=== PATIENT | female | born 1945 | race Caucasian/White ===

== ENCOUNTER 2023-09-03 16:32 | Inpatient (IN) | payer MEDICARE, OTHER ==
[~2023-09-03] VITALS: Ht 160 cm; Wt 83.9 kg
[2023-09-03] MEDS ORDERED: FLUO15OI TP (17:10)
[2023-09-03] MEDS ORDERED: DILT-32 PO (17:10)
[2023-09-03] MEDS ORDERED: LEVO25TA9 PO (17:10)
[2023-09-03] MEDS ORDERED: ROSU20TA2 PO (17:10)
[2023-09-03] MEDS ORDERED: POTA10CA43 PO (17:10)
[2023-09-03] MEDS ORDERED: LURA20TA PO (17:10)
[2023-09-03] MEDS ORDERED: MELA10CA PO (17:10)
[2023-09-03] MEDS ORDERED: CALC-494 PO (17:10)
[2023-09-03] MEDS ORDERED: CYAN100085 PO (17:10)
[2023-09-03] MEDS ORDERED: ALEN70TA3 PO (17:10)
[2023-09-03] MEDS ORDERED: GABA600T12 PO (17:10)
[2023-09-03] MEDS ORDERED: FERR-68 PO (17:10)
[2023-09-03] MEDS ORDERED: DOCU-141 PO (17:10)
[2023-09-03] MEDS ORDERED: TRAZ-257 PO (17:10)
[2023-09-03] MEDS ORDERED: FURO80TA87 PO (17:10)
[2023-09-03] MEDS ORDERED: CHOL10005 PO (17:10)
[2023-09-03] MEDS ORDERED: SPIR25TA PO (17:10)
[2023-09-03 18:46] VITALS: BP 107/65; TEMP 97.8; O2SAT 98
[2023-09-03 19:58] VITALS: BP 106/55; TEMP 97.9; O2SAT 96
[2023-09-03] MEDS ORDERED: ACETAMINOPHEN 325 MG TABLET PO PRN (20:15)
[2023-09-03] MEDS ORDERED: MAGNESIUM HYDROXIDE 30 ML LIQUID UDC PO PRN (20:15)
[2023-09-03] MEDS ORDERED: MAG HYDROX/AL HYDROX/SIMETH 30 ML LIQUID UDC PO PRN (20:15)
[2023-09-03] MEDS: ZOLPIDEM 5 MG TABLET PO PRN (20:40)
[2023-09-03] MEDS ORDERED: FUROSEMIDE 40 MG TABLET PO SCH (21:45)
[2023-09-03] MEDS ORDERED: FLUOCINONIDE 0.05% OINT 15 GM TUBE TP PRN (21:45)
[2023-09-03] MEDS: BLOOD SUGAR DIAGNOSTIC 1 EACH STRIP VI ONE (22:00)
[2023-09-04] MEDS: LORAZEPAM 1 MG TABLET PO PRN (01:17)
[2023-09-04] MEDS ORDERED: FUROSEMIDE 40 MG TABLET PO SCH (05:15)
[2023-09-04] MEDS ORDERED: FLUOCINONIDE 0.05% OINT 15 GM TUBE TP PRN (05:30)
[2023-09-04] MEDS: LEVOTHYROXINE SODIUM 25 MCG TABLET PO SCH (06:28)
[2023-09-04 06:36] LABS: BASOPHILS # (AUTO) 0.1 K/UL (0.0-0.2); BASOPHILS % (AUTO) 1.3 % (0.0-2.0); EOSINOPHILS # (AUTO) 0.3 K/uL (0.0-0.7); EOSINOPHILS % (AUTO) 3.3 % (0.0-7.0); HEMATOCRIT 44.4 % (31.2-41.9); HEMOGLOBIN 15.2 g/dL (10.9-14.3); LYMPHOCYTES # (AUTO) 1.9 K/uL (0.8-4.8); MEAN CORPUSCULAR HEMOGLOBIN 30.3 uug (24.7-32.8); MEAN CORPUSCULAR HGB CONC 34 g/dL (32.3-35.6); MEAN CORPUSCULAR VOLUME 88.3 fL (75.5-95.3); MONOCYTES # (AUTO) 0.9 K/uL (0.1-1.30); MONOCYTES % (AUTO) 9.8 % (0.0-11.0); NEUTROPHILS # (AUTO) 5.8 K/uL (1.8-8.9); NEUTROPHILS % (AUTO) 64.6 % (38.5-71.5); PLATELET COUNT (AUTO) 239 K/uL (179-408); RED BLOOD CELL COUNT(AUTO) 5.03 MIL/uL (3.63-4.92); RED CELL DISTRIBUTION WIDTH 14.3 % (12.3-17.7); WHITE BLOOD COUNT (AUTO) 8.9 K/uL (3.8-11.8)
[2023-09-04 06:39] LABS: DIFFERENTIAL COMMENT 1
[2023-09-04 06:56] LABS: ALANINE AMINOTRANSFERASE 29 U/L (14-59); ALBUMIN 3.7 g/dL (3.4-5.0); ALKALINE PHOSPHATASE 70 U/L (50-136); ASPARTATE AMINOTRANSFERASE 11 U/L (15-37); CALCIUM 9.7 mg/dL (8.5-10.1); CARBON DIOXIDE 28 mmol/L (21-32); CHLORIDE 97 mmol/L (98-107); CHOLESTEROL 132 mg/dL (<200); CREATININE 1.4 mg/dL (0.6-1.3); GLUCOSE 127 mg/dL (74-106); GLUCOSE FASTING 127 mg/dL (70-115); HDL CHOLESTEROL 58 mg/dL (40-60); MAGNESIUM 2.2 mg/dL (1.8-2.4); PHOSPHOROUS 3.4 mg/dL (2.5-4.9); POTASSIUM 3.9 mmol/L (3.5-5.1); SODIUM SERUM 132 mmol/L (136-145); TOTAL PROTEIN, SERUM 7.4 g/dL (6.4-8.2); TRIGLYCERIDES 151 MG/DL (30-150); UREA NITROGEN, BLOOD 28 mg/dL (7-18)
[2023-09-04 06:57] LABS: THYROID STIMULATING HORMONE 1.914 mIU/mL (0.358-3.740)
[2023-09-04 07:30] VITALS: BP 98/56; TEMP 97.8; O2SAT 94
[2023-09-04] MEDS: FERROUS SULFATE 325 MG TABEC PO SCH (08:21)
[2023-09-04] MEDS: POTASSIUM CHLORIDE 10 MEQ TAB.PRT.SR PO SCH (08:21)
[2023-09-04] MEDS ORDERED: DILTIAZEM HCL CD 120 MG CAP.SR.24H PO SCH (09:00)
[2023-09-04] MEDS: DILTIAZEM HCL CD 120 MG CAP.SR.24H PO SCH (09:00)
[2023-09-04] MEDS: ESCITALOPRAM OXALATE 10 MG TABLET PO SCH (11:36)
[2023-09-04] MEDS: LITHIUM CARBONATE 300 MG CAPSULE PO SCH (11:36)
[2023-09-04] MEDS: SPIRONOLACTONE 25 MG TABLET PO SCH (11:36)
[2023-09-04 15:50] VITALS: BP 117/66; TEMP 98; O2SAT 99
[2023-09-04 19:55] VITALS: BP 129/67; TEMP 98.1; O2SAT 96
[2023-09-04] MEDS: DOCUSATE SODIUM 100 MG CAPSULE PO SCH (20:05)
[2023-09-04] MEDS ORDERED: DOCUSATE SODIUM 100 MG CAPSULE PO SCH (21:00)
[2023-09-04] MEDS ORDERED: ATORVASTATIN 40 MG TABLET PO SCH (21:00)
[2023-09-05 07:48] VITALS: BP 99/51; TEMP 98.4; O2SAT 93
[2023-09-05] MEDS ORDERED: ATORVASTATIN 40 MG TABLET PO SCH (11:56)
[2023-09-05] MEDS: ATORVASTATIN 20 MG TABLET PO SCH (12:45)
[2023-09-05 16:06] VITALS: BP 142/62; TEMP 98.2; O2SAT 98
[2023-09-05 20:00] VITALS: BP 130/61; TEMP 98.1; O2SAT 96
[2023-09-05] MEDS: TRAZODONE 50 MG TABLET PO SCH (20:18)
[2023-09-06 07:54] VITALS: BP 94/47; TEMP 98; O2SAT 98
[2023-09-06 15:23] VITALS: BP 123/50; TEMP 98.2; O2SAT 96
[2023-09-06 20:00] VITALS: BP 118/52; TEMP 97.7; O2SAT 96
[2023-09-07 09:19] VITALS: BP 100/52; TEMP 98; O2SAT 96
[2023-09-07] MEDS: GLUCERNA SHAKE 237 ML CAN PO SCH (10:05)
[2023-09-07 15:12] VITALS: BP 166/67; TEMP 97.8; O2SAT 98
[2023-09-07 20:00] VITALS: BP 138/60; TEMP 97.7; O2SAT 96
[2023-09-08 08:21] VITALS: BP 98/62; TEMP 98.5; O2SAT 98
[2023-09-08 16:33] VITALS: BP 106/51; TEMP 98.4; O2SAT 96
[2023-09-08 23:11] VITALS: BP 107/64; TEMP 98.5; O2SAT 99
[2023-09-09 09:14] VITALS: BP 98/55; TEMP 98.3; O2SAT 98
[2023-09-09 16:55] VITALS: BP 103/60; TEMP 98.2; O2SAT 96
[2023-09-09 20:12] VITALS: BP 145/74; TEMP 98.2; O2SAT 98
[2023-09-10 08:57] VITALS: BP 94/48; TEMP 98; O2SAT 96
[2023-09-10 15:41] LABS: CALCIUM 10.2 mg/dL (8.5-10.1); CARBON DIOXIDE 23 mmol/L (21-32); CHLORIDE 104 mmol/L (98-107); CREATININE 1.2 mg/dL (0.6-1.3); GLUCOSE 103 mg/dL (74-106); MAGNESIUM 2.2 mg/dL (1.8-2.4); POTASSIUM 4.3 mmol/L (3.5-5.1); SODIUM SERUM 137 mmol/L (136-145); UREA NITROGEN, BLOOD 13 mg/dL (7-18)
[2023-09-10 16:35] VITALS: BP 95/44; TEMP 98; O2SAT 97
[2023-09-10 19:51] VITALS: BP 110/50; TEMP 98.1; O2SAT 96
[2023-09-10] MEDS: TRAZODONE 50 MG TABLET PO SCH (20:35)
[2023-09-11 08:38] VITALS: BP 100/64; TEMP 98.2; O2SAT 94
[2023-09-11] MEDS: ESCITALOPRAM OXALATE 10 MG TABLET PO SCH (08:47)
[2023-09-11 16:04] VITALS: BP 102/57; TEMP 98; O2SAT 96
[2023-09-11 19:50] VITALS: BP 115/58; TEMP 98.1; O2SAT 96
[2023-09-12 10:48] VITALS: BP 110/48; TEMP 97.6; O2SAT 96
[2023-09-12 17:02] VITALS: BP 103/61; TEMP 97.7; O2SAT 96
[2023-09-12 20:00] VITALS: BP 108/66; TEMP 98; O2SAT 100
[2023-09-12] MEDS: ATORVASTATIN 10 MG TABLET PO SCH (20:31)
[2023-09-12] MEDS: METOPROLOL TARTRATE 25 MG TABLET PO SCH (20:32)
[2023-09-13 06:46] LABS: *BILIRUBIN,URIN NEGATIVE (NEGATIVE); *BLOOD, URINE NEGATIVE (NEGATIVE); *CLARITY,URINE CLEAR (CLEAR); *COLOR,URINE YELLOW (YELLOW); *KETONES,URINE NEGATIVE (NEGATIVE); *PROTEIN,URINE NEGATIVE (NEGATIVE); *UROBILINOGEN,URINE 0.2 E.U./dl (NORMAL); LEUKOCYTE ESTERASE ,URINE TRACE (NEGATIVE); NITRITE, URINE NEGATIVE (NEGATIVE); PH,URINE 6.5 (5.0-8.0); UGLUCOSE NEGATIVE (NEGATIVE)
[2023-09-13 07:04] LABS: BACTERIA,URINE FEW /HPF (NONE SEEN); SQUAMOUS EPITHELIAL CELL,UR FEW /HPF (NONE SEEN)
[2023-09-13] MEDS ORDERED: TEMAZEPAM 7.5 MG CAPSULE PO PRN (08:00)
[2023-09-13 08:07] VITALS: BP 96/59; TEMP 98; O2SAT 96
[2023-09-13 15:20] VITALS: BP 93/52; TEMP 98; O2SAT 96
[2023-09-13 20:00] VITALS: BP 95/56; TEMP 98.5; O2SAT 98
[2023-09-13] MEDS: AMITRIPTYLINE HCL 25 MG TABLET PO SCH (21:48)
[2023-09-13] MEDS: MELATONIN 3 MG TABLET PO SCH (21:49)
[2023-09-13 22:00] VITALS: BP 110/57
[2023-09-14 07:30] VITALS: BP 116/68; TEMP 98.2; O2SAT 98
[2023-09-14 13:00] VITALS: BP 90/51; TEMP 98; O2SAT 96
== END 2023-09-14 15:15 | DRG 885 ==
LOC: ER 16:39 → GPS 18:31
PROVIDERS: ADMIT Psychiatry & Neurology Psychiatry; ATTEND Internal Medicine
DX: F31.5 Bipolar disorder, current episode depressed, severe, with psychotic features (principal); N18.9 Chronic kidney disease, unspecified; N17.0 Acute kidney failure with tubular necrosis; R45.851 Suicidal ideations; D68.59 Other primary thrombophilia; E87.1 Hypo-osmolality and hyponatremia; I50.32 Chronic diastolic (congestive) heart failure; E11.22 Type 2 diabetes mellitus with diabetic chronic kidney disease; E66.9 Obesity, unspecified; Z68.32 Body mass index [BMI] 32.0-32.9, adult; E03.9 Hypothyroidism, unspecified; Z79.890 Hormone replacement therapy; Z79.899 Other long term (current) drug therapy; Z88.2 Allergy status to sulfonamides; I12.9 Hypertensive chronic kidney disease with stage 1 through stage 4 chronic kidney disease, or unspecified chronic kidney disease; Z74.09 Other reduced mobility; E83.52 Hypercalcemia; E86.1 Hypovolemia; I35.1 Nonrheumatic aortic (valve) insufficiency; Z86.010 Personal history of colon polyps; E78.5 Hyperlipidemia, unspecified
CPT/HCPCS: 36415; 70030-TC; 71045; 83735; 84100; 84443; 85025; 93005